=== PATIENT | female | born 1995 | race Hispanic/Latino ===

== ENCOUNTER 2025-01-22 19:06 | Inpatient (IN) | payer SELFPAY ==
[~2025-01-22] VITALS: Ht 157.5 cm; Wt 53.9 kg
[2025-01-22 19:44] LABS: IMMATURE GRANULOCYTE ABSOLUTE 0.01 K/uL (0-1); NUCLEATED RED BLOOD CELLS 0.0 % (0.0-0.19); PLATELET COUNT (AUTO) 241 K/uL (130-400); RED BLOOD CELL COUNT(AUTO) 4.70 MIL/uL (4.00-5.50); RED CELL DISTRIBUTION WIDTH 12.9 % (11.0-15.5); WHITE BLOOD COUNT (AUTO) 6.1 K/uL (4.8-10.8)
[2025-01-22 19:46] LABS: APPEARANCE,URINE CLEAR (CLEAR); GLUCOSE, URINE (UA) NEGATIVE (NEGATIVE); LEUKOCYTE ESTERASE ,URINE NEGATIVE Leu/uL (NEGATIVE); NITRATE,URINE NEGATIVE (NEGATIVE); OCCULT BLOOD,URINE NEGATIVE (NEGATIVE)
[2025-01-22 19:47] LABS: ADD UA MICROSCOPIC YES
[2025-01-22 19:48] LABS: SQUAMOUS EPITHELIAL CELL,UR FEW /HPF (0-2)
[2025-01-22 19:49] LABS: HCG,QUALITATIVE URINE NEGATIVE (NEGATIVE)
[2025-01-22 19:57] LABS: CREATININE 0.6 mg/dL (0.5-1.0); GLOMERULAR FILTR. RATE CALC 125.0 mL/min (>90); GLUCOSE,RANDOM 111.0 mg/dL (70-105); SODIUM SERUM 138.0 mmol/L (136-145); UREA NITROGEN, BLOOD 19.0 mg/dL (7-18)
[2025-01-22 20:02] LABS: ASPARTATE AMINOTRANSFERASE 119.0 U/L (10-37); TOTAL PROTEIN, SERUM 7.2 g/dL (6.0-8.3)
--- NOTE | 2025-01-22 20:11 | ERN ---
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 Patient reports pain lasted about 45 minutes and was associated with nausea. Patient reports pain has subsided and thinks it is because she ate a burger prior to arrival. Patient denies any fevers, diarrhea or constipation, vomiting. Allergies: Coded Allergies: No Known Allergies (Unverified Allergy, Unknown, 01/22/25) Past Medical History Past Medical History: No Pertinent History Surgical History: None LMP: Dec 29, 2024 RN Note Reviewed/Agreed w/PFSH: Yes Review of System Dictation Constitutional: Negative for fever,chills, and weight loss Eyes: Negative for injury, pain,redness, and discharge ENT: Negative for injury,pain or swelling Cardiovascular: Negative for chest pain, palpitations, and edema Respiratory: Negative for shortness of breath, cough, and wheezing, Abdomen/GI: Negative for vomiting, diarrhea, and constipation positive for abdominal pain, nausea Back: Negative for injury and pain : Negative for injury, bleeding and discharge MS/Extremity: Negative for injury and deformity Skin: Negative for rash, and discoloration Neuro: Negative for headache, weakness, numbness, tingling, and seizure Psych: Negative for suicide ideation, homicidal ideation, and hallucinations Initial Vital Sign VS Vital Signs Date Time Temp Pulse Resp B/P (MAP) Pulse Ox O2 Delivery O2 Flow Rate FiO2 01/22/25 19:11 98.2 91 20 132/91 100 Room Air 01/22/25 19:19 0 21 Physical Exam Dictation Vital Signs reviewed General Appearance: Alert, oriented x 3, no acute distress, well developed, nourished. Head and Face: non-traumatic. Eyes: PERRL, pink conjunctivas, eyelid no trauma, anterior chamber with arcus senilis. Ears: Pinnas intact and no signs of trauma or erythema ear canals clear and no discharge TM no erythema Nose: No discharge, no bleeding. Oropharynx: Mouth normal, tongue pink. pharynx clear,no erythema, tonsils no exudates, no abscesses noted, mucous membrane moist Neck: Supple, non-tender, no thyromegaly, no masses, no JVD, no bruits Breast:Deferred Chest:No tenderness, no crepitus, no paradoxical movement, no retractions Lungs:Clear, well-ventilated, symmetric, no rales, no wheezing, no rhonchi, no stridor, good breath sounds bilaterally Heart: Regular rate, regular rhythm, no murmur, no gallops Vascular: no peripheral edema, Abdomen: Soft, positive bowel sounds, nondistended, no guarding, Right upper quadrant tenderness,, no rebound, no masses no hepatomegaly, no splenomegaly, no Honeycutt's sign, no hernias. Rectal: Deferred Genital: Deferred Neurological: Normal speech, motor function intact, sensory function intact Musculoskeletal: Neck nontender, full range of motion, back nontender, full range of motion, Extremities: nontender, full range of motion Skin: Color pink, dry, no turgor, no rash, no lacerations, no abrasions, no contusions. Lymphatic: Deferred Results (Laboratory/Radiology) Laboratory/Radiology Laboratory Tests Test 01/22/25 19:16 01/22/25 19:40 Urine Color LIGHT-YELLOW (YELLOW) Urine Appearance CLEAR (CLEAR) Urine pH 5.5 (5.0-8.0) Urine Specific [place] 1.022 (1.001-1.031) Urine Protein NEGATIVE mg/dL (NEGATIVE) Urine Glucose (UA) NEGATIVE mg/dL (NEGATIVE) Urine Ketones NEGATIVE mg/dL (NEGATIVE) Urine Occult Blood NEGATIVE (NEGATIVE) Urine Nitrate NEGATIVE (NEGATIVE) Urine Bilirubin NEGATIVE mg/dL (NEGATIVE) Urine Urobilinogen 0.2 mg/dL (0.2-1.0) Urine Leukocyte Esterase NEGATIVE [place]/uL Urine RBC 0-1 /HPF (0-1) Urine WBC 2-5 /HPF (0-1) H Urine Squamous Epithelial Cells FEW /HPF (0-2) Urine Bacteria None /HPF (None Seen) Urine HCG, Qualitative NEGATIVE (NEGATIVE) White Blood Count 6.1 K/uL (4.8-10.8) Red Blood Count 4.70 MIL/uL (4.00-5.50) Hemoglobin 13.4 g/dL (12.0-16.0) Hematocrit 39.9 % (36-48) Mean Corpuscular Volume 84.9 fL (79-99) Mean Corpuscular Hemoglobin 28.5 pg (27.0-33.0) Mean Corpuscular Hemoglobin Concent 33.6 g/dL (32.0-36.0) Red Cell Distribution Width 12.9 % (11.0-15.5) Platelet Count 241 K/uL (130-400) Mean Platelet Volume 11.1 fL (7.5-10.5) H Immature Granulocyte % (Auto) 0.2 % (0-1) Neutrophils (%) (Auto) 48.2 % (40.0-77.0) Lymphocytes (%) (Auto) 45.3 % (21.0-51.0) Monocytes (%) (Auto) 4.9 % (3.0-13.0) Eosinophils (%) (Auto) 1.1 % (0.0-8.0) Basophils (%) (Auto) 0.3 % (0.0-5.0) Neutrophils # (Auto) 3.0 K/uL (1.8-7.7) Lymphocytes # (Auto) 2.8 K/uL (1.0-4.8) Monocytes # (Auto) 0.3 K/uL (0.1-1.0) Eosinophils # (Auto) 0.07 K/uL (0.00-0.70) Basophils # (Auto) 0.02 K/uL (0.00-0.20) Absolute Immature Granulocyte (auto 0.01 K/uL (0-1) Nucleated Red Blood Cells 0.0 % (0.0-0.19) Sodium Level 138 mmol/L (136-145) Potassium Level 3.4 mmol/L (3.5-5.1) L Chloride Level 104 mmol/L (101-111) Carbon Dioxide Level 26 mmol/L (21-32) Blood Urea Nitrogen 19 mg/dL (7-18) H Creatinine 0.6 mg/dL (0.5-1.0) Glomerular Filtration Rate Calc 125 mL/min (>90) Random Glucose 111 mg/dL (70-105) H Total Calcium 8.3 mg/dL (8.5-10.1) L Total Bilirubin 0.5 mg/dL (0.2-1.0) Direct Bilirubin 0.1 mg/dL (0.0-0.3) Aspartate Amino Transf (AST/SGOT) 119 U/L (10-37) H Alanine Aminotransferase (ALT/SGPT) 73 U/L (12-78) Alkaline Phosphatase 79 U/L (50-136) Total Protein 7.2 g/dL (6.0-8.3) Albumin 3.8 g/dL (3.5-5.0) Triglycerides Level 114 mg/dL (30-200) Lipase 1422 U/L (16-77) *H REASON: Adominal Pain ORDERING PHYSICIAN: ROSANA WHITE PROCEDURE: [id number] - US ABDOMINAL RUQ\LTD EXAMINATION: Ultrasound of the abdomen (limited). CLINICAL HISTORY: Abdominal pain. COMPARISON: None provided. TECHNIQUE: Real-time grayscale ultrasound images of the abdomen. FINDINGS: LIVER: Normal in caliber; the right hepatic lobe measures 14 cm in the craniocaudal dimension. There is increased echogenicity of the hepatic parenchyma. There is no focal hepatic abnormality or intrahepatic biliary ductal dilatation. GALLBLADDER: The gallbladder is distended with multiple calculi casting posterior acoustic shadow, the largest measuring up to 1.7 cm. Normal wall thickness (2 mm). No hyperemia or pericholecystic free fluid. The common bile duct is normal in caliber, measuring 0.5 cm. PANCREAS: Normal in caliber and echotexture. No calcification or dilated pancreatic duct. The right kidney is normal in caliber; the right kidney measures 10.3 x 4.7 x 3.9 cm in its craniocaudal, AP, and transverse dimensions. There is normal renal cortical thickness and cortical echogenicity. There is no renal calculus or hydronephrosis. IMPRESSION: Cholelithiasis without evidence of acute cholecystitis. Hepatic steatosis. /[facility] Labs Reviewed?: Yes ED Course ED Course Orders Procedure Category Date Status Time Cbc With Differential LAB 01/22/25 Complete 19:23 ,Urine Test LAB 01/22/25 Complete 19:23 Urinalysis Profile LAB 01/22/25 Complete 19:23 Us Abdominal Ruq\Ltd US 01/22/25 Resulted 19:23 Lipase LAB 01/22/25 Complete 19:23 Basic Metabolic Panel LAB 7/31/25 Complete 19:23 Hepatic Function Panel LAB 01/22/25 Complete 19:23 Triglycerides LAB 01/22/25 Complete 20:43 0.9%Nacl 1000ml (Ns PHA 01/22/25 Complete 1000ml) 21:00 Morphine 4mg Syg PHA 01/22/25 Complete (Morphine 4mg Syg) 21:00 Ondansetron 4mg Inj PHA 01/22/25 Complete (Zofran 4mg Inj) 21:00 Keep Patient Npo CPOE 01/22/25 Transmitted 22:01 Admit Orders ADM 01/22/25 Transmitted 22:01 Basic Metabolic Panel LAB 01/23/25 Verified 04:00 Cbc With Differential LAB 01/23/25 Verified 04:00 Magnesium LAB 01/23/25 Verified 04:00 Phosphorus LAB 01/23/25 Verified 04:00 Activity: Ad Maggie CPOE 01/22/25 Transmitted 22:01 Apply Knee High Teds CPOE 01/22/25 Transmitted 22:01 Apply Scds CPOE 01/22/25 Transmitted 22:01 Condition: CPOE 01/22/25 Transmitted 22:01 Daily Weights CPOE 01/22/25 Transmitted 22:01 I&O Q Shift CPOE 01/22/25 Transmitted 22:01 Nurse To Enter Home CPOE 01/22/25 Transmitted Medication 22:01 Oxygen By Nc/Pulse Ox CPOE 01/22/25 Transmitted 22:01 Telemetry Monitoring CPOE 01/22/25 Transmitted 22:01 Vital Signs(Adult CPOE 01/22/25 Transmitted Hospitalist) 22:01 Acetaminophen 650mg PHA 01/22/25 In Process Supp (Tylenol 650mg 22:30 Ondansetron 4mg Inj PHA 01/22/25 In Process (Zofran 4mg Inj) 22:30 Morphine 4mg Syg PHA 01/22/25 In Process (Morphine 4mg Syg) 22:30 Hydralazine 20mg Inj PHA 01/22/25 In Process (Apresoline 20mg In 22:30 Enoxaparin Sodium 40 PHA 01/23/25 In Process Mg/0.4 Ml (Lovenox) 09:00 Famotidine 20mg Vial PHA 01/23/25 In Process (Pepcid 20mg Vial) 09:00 Lactated Ringers PHA 01/22/25 In Process 1000ml (Lactated 22:30 Current Medications Medications (Trade) Dose Ordered Sig/[place] Route PRN Reason Start Time Stop Time Status Last Admin Dose Admin Acetaminophen (TYLenol 650MG SUPPOSITORY) 650 mg Q6H PRN RC MILD PAIN (1-3) 01/22/25 22:30 02/21/25 22:29 Enoxaparin Sodium (Lovenox) 40 mg DAILY SQ 01/23/25 09:00 02/22/25 08:59 Famotidine (Pepcid 20mg Vial) 20 mg DAILY IV 01/23/25 09:00 02/22/25 08:59 Hydralazine HCl (APRESOLine 20MG INJ) 10 mg Q6H PRN IV For:SBP above 160;DBP above 90 01/22/25 22:30 02/21/25 22:29 Lactated Ringer's 1,000 ml @ 125 mls/hr Q8H IV 01/22/25 22:30 02/21/25 22:29 Morphine Sulfate (morPHINE 4MG SYG) 4 mg ONCE ONCE IVP 01/22/25 21:00 01/22/25 21:01 DC Morphine Sulfate (morPHINE 4MG SYG) 4 mg Q4H PRN IVP SEVERE PAIN (7-10) 01/22/25 22:30 01/29/25 22:29 Ondansetron HCl (zoFRAN 4MG INJ) 4 mg ONCE ONCE IVP 01/22/25 21:00 01/22/25 21:01 DC Ondansetron HCl (zoFRAN 4MG INJ) 4 mg Q6H PRN IV NAUSEA/VOMITING 01/22/25 22:30 02/21/25 22:29 Sodium Chloride 1,000 ml @ 0 mls/hr ONCE ONCE IV 01/22/25 21:00 01/22/25 21:01 DC 01/22/25 20:52 Vital Signs Date Time Temp Pulse Resp B/P (MAP) Pulse Ox O2 Delivery O2 Flow Rate FiO2 01/22/25 21:15 98.2 78 20 128/87 100 Room Air* 0 21 01/22/25 19:19 98.2 81 20 132/91 100 Room Air* 0 21 01/22/25 19:11 98.2 91 20 132/91 100 Room Air Medical Decision Making MDM MDM: The patient is a 29-year-old female with a history of cholelithiasis who presents to the emergency department with complaints of right upper abdominal pain onset prior to arrival. Patient reports pain lasted about 45 minutes and was associated with nausea. Patient reports pain has subsided and thinks it is because she ate a burger prior to arrival. Patient denies any fevers, diarrhea or constipation, vomiting. CBC showed no leukocytosis, no anemia, chemistry showed mild hypokalemia, lipase of a 1422, urinalysis unremarkable, abdominal ultrasound showed cholelithiasis without cholecystitis. Patient will be admitted for further evaluation treatment. Differential diagnosis: Cholelithiasis, cholecystitis, pancreatitis Comorbidities: Cholelithiasis Tests considered and not ordered secondary to shared decision making include: none Previous outside records reviewed: none Risk of complication and/or morbidity or mortality of patient management: The patient meets criteria for admission. Need for emergency major/minor surgery: No There are no social concerns with this patient. I independently interpreted the tests I ordered (labs, urinalysis, etc.). I discussed the case with the hospitalist for admission. Rito who accepts admission I discussed the case with the following specialists: none. Historian: pateint. I independently interpreted imaging studies and EKGs that I ordered (US, CT, XR, EKG, etc.). External chart review: none. Medical management and examination interpretation discussions were had by me with other qualified healthcare professionals as indicated for the patient's care. DX & DISP Disposition: Inpatient Decision to Admit Date: Jan 22, 2025 Decision to Admit Time: 22:16 Departure Impression: Primary Impression: Pancreatitis Additional Impressions: Cholelithiasis, Hypokalemia Condition: Stable Referrals: NONE (PCP) I have reviewed the case, and I agree with, Diagnosis and Plan ROSANA WHITE Jan 22, 2025 20:11
[2025-01-22] MEDS: 0.9%NACL 1000ML 1,000 ML IV ONE (20:52)
--- NOTE | 2025-01-22 21:09 | HMCIMG ---
EXAMINATION: Ultrasound of the abdomen (limited). CLINICAL HISTORY: Abdominal pain. COMPARISON: None provided. TECHNIQUE: Real-time grayscale ultrasound images of the abdomen. FINDINGS: LIVER: Normal in caliber; the right hepatic lobe measures 14 cm in the craniocaudal dimension. There is increased echogenicity of the hepatic parenchyma. There is no focal hepatic abnormality or intrahepatic biliary ductal dilatation. GALLBLADDER: The gallbladder is distended with multiple calculi casting posterior acoustic shadow, the largest measuring up to 1.7 cm. Normal wall thickness (2 mm). No hyperemia or pericholecystic free fluid. The common bile duct is normal in caliber, measuring 0.5 cm. PANCREAS: Normal in caliber and echotexture. No calcification or dilated pancreatic duct. The right kidney is normal in caliber; the right kidney measures 10.3 x 4.7 x 3.9 cm in its craniocaudal, AP, and transverse dimensions. There is normal renal cortical thickness and cortical echogenicity. There is no renal calculus or hydronephrosis. IMPRESSION: Cholelithiasis without evidence of acute cholecystitis. Hepatic steatosis. /[place]
--- NOTE | 2025-01-22 22:04 | HP ---
History of Present Illness Reason for Visit: abdominal pain History of Present Illness Ms. Mota is a 29-year-old female that was seen and examined today on 01/22/2025. Patient is a good historian of personal health Patient states he came to the emergency department with a chief complaint of abdominal pain. Onset was today at 6:30 p.m.. Location is epigastric. Duration is constant. Character is described as pressure. There was no alleviating factors. Symptoms are aggravated with eating a hamburger and [place] fries. Patient denies any associated nausea or vomiting. Patient states she was diagnosed with gallstones one year ago. Today in the emergency department CBC unremarkable, potassium 3.4, lipase 1422. Emergency room physician recommended patient be admitted with a diagnosis of pancreatitis. Past Medical History ADDITIONAL PAST MEDICAL HISTORY: [Denies] SOCIAL HISTORY: [Negative for smoking, alcohol use, drug use. Patient lives with the radha Carias. Patient is typically independent of her ADLs. Patient denies difficulty paying her bills.] SURGICAL HISTORY: [Denies] Review of Systems General: No Fever, No Chills, No Night Sweats, No Fatigue, No Malaise, No Appetite, No Other HEENT: No Head Aches, No Visual Changes, No Eye Pain, No Ear Pain, No Dysphasia, No Sinus Congestion, No Post Nasal Drip, No Sore Throat, No Other Pulmonary: No Dyspnea, No Cough, No Pleuritic Chest Pain, No Other Cardiovascular: No: Chest Pain, Palpitations, Orthopnea, Paroxysmal Noc. Dyspnea, Edema, Lt Headedness, Other Gastrointestinal: Abdominal Pain; No: Nausea, Vomiting, Diarrhea, Constipation, Melena, Hematochezia, Other Genitourinary: No Dysuria, No Frequency, No Incontinence, No Hematuria, No Retention, No Other Musculoskeletal: No: other, neck pain, shoulder pain, arm pain, back pain, hand pain, leg pain, foot pain Skin: No Urticaria, No Rash, No Other Neurological: No: Weakness, Numbness, Incoordination, Change in speech, Confusion, Seizures, Other Allergies: Coded Allergies: No Known Allergies (Unverified Allergy, Unknown, 01/22/25) Exam Vital Signs Vital Signs Date Time Temp Pulse Resp B/P (MAP) Pulse Ox O2 Delivery O2 Flow Rate FiO2 7/31/25 21:15 98.2 78 20 128/87 100 Room Air* 0 21 General Appearance: Alert, Oriented X3, Cooperative, mild distress HEENT: Atraumatic, PERRLA, EOMI, Mucous membr. moist/pink Respiratory: Clear to auscultation, Normal air movement, NL respiratory effort Cardiovascular: Regular rate, Regular rhythm, Normal S1, Normal S2 Abdominal: Normal bowel sounds, Soft, No tenderness Extremities: No edema Skin: No significant lesion Neuro: Normal speech, Strength at 5/5 X4 ext, Sensation intact, Cranial nerves 3-12 NL Psych/Mental Status: Mental status NL, Mood NL, Thoughts/Content NL Assessment/Plan ASSESSMENT: [ Pancreatitis, POA Hypokalemia, POA Cholelithiasis, POA] PLAN: [ Admit patient to medical floor as inpatient status. Place patient on telemetry monitoring. As needed analgesia with morphine. Lactated Ringer's at 125 mL/HR. Keep patient NPO. Consider rechecking lipase in 48 hours. Replace potassium per hospital protocol. Have patient follow up outpatient with surgeon of choice in reference to her cholelithiasis. At time of admission there was no cholecystitis evident on abdominal ultrasound. GI prophylaxis, famotidine DVT prophylaxis, Lovenox ADVANCED CARE PLANNING 1. Which of the following were discussed? Hospice Care - Yes Therapeutic options - yes Advance Directives - Yes - patient states she does not have any advance directives in place at this time. Patient states there has been can make decisi ons for her if she becomes unable Other discussions - patient wishes to remain a full code 2. Discussed with who? Patient 3. Voluntary nature of this service was explained to the patient? Yes 4. Amount of time spent - ___16 minutes____ 5. Reviewed by Physician? (if this service was performed by NPP) Yes This document was generated in part using voice recognition software, occasional wrong word or sound alike substitutions may have occurred due to the inherent limitations of voice recognition software. Read the chart carefully and recognize using context, where the substitutions have occurred. Although every effort was made to edit the content, legal compliance officer and typing errors may occur ATTESTATION BY PHYSICIAN I have seen and examined the patient. I reviewed the documentation, medical decision making, and treatment plan as noted by the mid-level provider above. I agree with the findings and plan of care.] KIRSTIN [facility] Jan 22, 2025 22:04
[2025-01-22] MEDS: LACTATED RINGERS 1000ML 1,000 ML IV SCH (22:57)
[2025-01-23 00:19] VITALS: BP 148/67; PULSE 62; RESP 18; TEMP 98.9
[2025-01-23 05:16] VITALS: BP 93/45; PULSE 57; RESP 17; TEMP 98.2
[2025-01-23 05:53] LABS: IMMATURE GRANULOCYTE ABSOLUTE 0.01 K/uL (0-1); NUCLEATED RED BLOOD CELLS 0.0 % (0.0-0.19); PLATELET COUNT (AUTO) 216 K/uL (130-400); RED BLOOD CELL COUNT(AUTO) 4.35 MIL/uL (4.00-5.50); RED CELL DISTRIBUTION WIDTH 12.9 % (11.0-15.5); WHITE BLOOD COUNT (AUTO) 6.9 K/uL (4.8-10.8)
[2025-01-23 06:01] LABS: CREATININE 0.5 mg/dL (0.5-1.0); GLOMERULAR FILTR. RATE CALC 130.0 mL/min (>90); GLUCOSE,RANDOM 86.0 mg/dL (70-105); PHOSPHORUS 3.3 mg/dL (2.5-4.9); SODIUM SERUM 141.0 mmol/L (136-145); UREA NITROGEN, BLOOD 10.0 mg/dL (7-18)
[2025-01-23 08:00] VITALS: O2SAT 100
[2025-01-23] MEDS: ENOXAPARIN SODIUM 40 MG/0.4 ML SYRINGE SQ SCH (08:33)
[2025-01-23] MEDS: FAMOTIDINE 20MG VIAL IV SCH (08:33)
--- NOTE | 2025-01-23 10:32 | NUR ---
DCP: HOME Pt currently lives with bety Mota [phone]. Pt does not report insecurities with food, senior living, and/or utilities. Pt does not have any DME, home health, or provider services. Pt is able to complete ADLs independently. Pt does not have a PCP and did not want community resources. She states that when she feels ill she walks into her nearest urgent care. At [place] pt will want to go home and family can assist with transportation. Addendum: 01/23/25 at 1034 by ROSIE BRICENO SS Amended: Links added.
[2025-01-23 12:54] VITALS: BP 109/58; PULSE 63; RESP 16; TEMP 97.8
[2025-01-23] MEDS: MAGNESIUM 2GM PREMIX 50ML 50 ML IV PRN (14:34)
--- NOTE | 2025-01-23 16:10 | NUR ---
Patient transported off unit via wheelchair for scheduled procedure: SAMUELP
[2025-01-23] MEDS ORDERED: GADOTERATE MEGLUMINE 10 MMOL/20 ML VIAL IV ONE (16:28)
--- NOTE | 2025-01-23 17:29 | PN ---
[facility] PROGRESS NOTE Date of Service: Jan 23, 2025 Time of Service: 17:09 SUBJECTIVE: Ms. Oneill is a 29-year-old female that that came to the emergency department with a chief complaint of abdominal pain. Onset of pain was last night after she had a half a hamburger. The location is epigastric and the duration is constant she describes the pain more as pressure kind of pain. There were no alleviating factors. Patient says she had these episodes previously the last of which was around April which is when she decided to go to the doctor and she got diagnosed with gallstones. She did not undergo any procedure or treatment and was advised to change her diet and exercise. Patient denies any associated vomiting but said she had nausea. In the ED her lipase was in the range of 1422 and potassium at 3.4. 01/23/25: Patient is doing much better today she has no epigastric pain or nausea. Her abdomen was benign and there was no tenderness on palpitation. Her lipase is at 163 today. Her potassium has also improved to 3.7 after receiving IV potassium Her magnesium today is low at 1.70 so she is has been getting IV magnesium. Patient is scheduled for MRCP. Surgery and GI have been consulted. We will follow their recommendations. REVIEW OF SYSTEMS CONSTITUTIONAL: Denies fevers, chills, or night sweats. No unintentional weight loss reported. NEUROLOGICAL: Denies headache, motor weakness, sensory deficit, verti go/spinning sensation. ENT: No hearing loss, rhinorrhea, hoarseness, or sore throat. CARDIOVASCULAR: Denies any exertional angina, dyspnea on exertion, orthopnea, paroxysmal nocturnal dyspnea. PULMONARY: Denies any shortness of breath, cough, phlegm/sputum, hemoptysis, pleuritic chest pain. GASTROINTESTINAL: constipation Denies any type of dysphagia to either liquids or solids. Denies nausea, vomiting, diarrhea, or changes in stool consistency or caliber. Denies coffee-ground emesis, hematemesis, hematochezia, or melanotic stools. ENDOCRINOLOGIC: Denies polyuria, polydipsia, polyphagia or heat/cold intolerances. DERMATOLOGIC: Denies rashes or pruritus. PHYSICAL EXAM GENERAL APPEARANCE: The patient is awake, alert, and oriented, in no acute cardiopulmonary distress. NEUROLOGICAL: Cranial nerves II-XII grossly intact. Motor is 5/5 in bilateral upper and lower extremities proximal to distal. No sensory deficits. HEENT: Face is symmetric. Pupils are equal and reactive. Extraocular movements are intact. NECK: Supple. No JVD. No thyromegaly. No submental, submandibular, pre- /postauricular, occipital or supraclavicular lymphadenopathy. CHEST: Normal chest expansion. No Telemetry. LUNGS: Absence of any rales, rhonchi or any wheezing. CARDIOVASCULAR: Regular. S1 and S2 normal. No appreciable rubs, murmurs or gallops. ABDOMEN: Soft, nontender, and nondistended. There is no rebound, voluntary guarding, or rigidity. : Deferred. No Linda. EXTREMITIES: Non-edematous and not cyanotic. No clubbing. Good capillary refill. SKIN: No skin breakdown. Vital Signs (last 8hr) Date Time Temp Pulse Resp B/P (MAP) Pulse Ox O2 Delivery O2 Flow Rate FiO2 01/23/25 12:54 97.9 63 16 109/58 100 Room Air 0.0 LABS: Laboratory: Test 01/23/25 05:12 01/22/25 19:40 01/22/25 19:16 Range/Units White Blood Count 6.9 4.8-10.8 K/uL Red Blood Count 4.35 4.00-5.50 MIL/uL Hemoglobin 12.2 12.0-16.0 g/dL Hematocrit 37.1 36-48 % Mean Corpuscular Volume 85.3 79-99 fL Mean Corpuscular Hemoglobin 28.0 27.0-33.0 pg Mean Corpuscular Hemoglobin Concent 32.9 32.0-36.0 g/dL Red Cell Distribution Width 12.9 11.0-15.5 % Platelet Count 216 130-400 K/uL Mean Platelet Volume 11.3 H 7.5-10.5 fL Immature Granulocyte % (Auto) 0.1 0-1 % Neutrophils (%) (Auto) 36.7 L 40.0-77.0 % Lymphocytes (%) (Auto) 54.0 H 21.0-51.0 % Monocytes (%) (Auto) 7.3 3.0-13.0 % Eosinophils (%) (Auto) 1.5 0.0-8.0 % Basophils (%) (Auto) 0.4 0.0-5.0 % Neutrophils # (Auto) 2.5 1.8-7.7 K/uL Lymphocytes # (Auto) 3.7 1.0-4.8 K/uL Monocytes # (Auto) 0.5 0.1-1.0 K/uL Eosinophils # (Auto) 0.10 0.00-0.70 K/uL Basophils # (Auto) 0.03 0.00-0.20 K/uL Absolute Immature Granulocyte (auto 0.01 0-1 K/uL Nucleated Red Blood Cells 0.0 0.0-0.19 % Sodium Level 141 136-145 mmol/L Potassium Level 3.7 3.5-5.1 mmol/L Chloride Level 109 101-111 mmol/L Carbon Dioxide Level 24 21-32 mmol/L Blood Urea Nitrogen 10 7-18 mg/dL Creatinine 0.5 0.5-1.0 mg/dL Glomerular Filtration Rate Calc 130 >90 mL/min Random Glucose 86 70-105 mg/dL Total Calcium 8.0 L 8.5-10.1 mg/dL Phosphorus Level 3.3 2.5-4.9 mg/dL Magnesium Level 1.70 L 1.80-2.40 mg/dL Lipase 163 H 16-77 U/L Total Bilirubin 0.5 0.2-1.0 mg/dL Direct Bilirubin 0.1 0.0-0.3 mg/dL Aspartate Amino Transf (AST/SGOT) 119 H 10-37 U/L Alanine Aminotransferase (ALT/SGPT) 73 12-78 U/L Alkaline Phosphatase 79 50-136 U/L Total Protein 7.2 6.0-8.3 g/dL Albumin 3.8 3.5-5.0 g/dL Triglycerides Level 114 30-200 mg/dL Urine Color LIGHT-YELLOW YELLOW Urine Appearance CLEAR CLEAR Urine pH 5.5 5.0-8.0 Urine Specific [place] 1.022 1.001-1.031 Urine Protein NEGATIVE NEGATIVE mg/dL Urine Glucose (UA) NEGATIVE NEGATIVE mg/dL Urine Ketones NEGATIVE NEGATIVE mg/dL Urine Occult Blood NEGATIVE NEGATIVE Urine Nitrate NEGATIVE NEGATIVE Urine Bilirubin NEGATIVE NEGATIVE mg/dL Urine Urobilinogen 0.2 0.2-1.0 mg/dL Urine Leukocyte Esterase NEGATIVE NEGATIVE [place]/uL Urine RBC 0-1 0-1 /HPF Urine WBC 2-5 H 0-1 /HPF Urine Squamous Epithelial Cells FEW 0-2 /HPF Urine Bacteria None None Seen /HPF Urine HCG, Qualitative NEGATIVE NEGATIVE Current Medications Medications (Trade) Dose Ordered Sig/[place] Route PRN Reason Start Time Stop Time Status Last Admin Dose Admin Acetaminophen (TYLenol 650MG SUPPOSITORY) 650 mg Q6H PRN RC MILD PAIN (1-3) 01/22/25 22:30 02/21/25 22:29 Enoxaparin Sodium (Lovenox) 40 mg DAILY SQ 01/23/25 09:00 02/22/25 08:59 01/23/25 08:33 40 MG Famotidine (Pepcid 20mg Vial) 20 mg DAILY IV 01/23/25 09:00 02/22/25 08:59 01/23/25 08:33 20 MG Hydralazine HCl (APRESOLine 20MG INJ) 10 mg Q6H PRN IV For:SBP above 160;DBP above 90 01/22/25 22:30 02/21/25 22:29 Lactated Ringer's 1,000 ml @ 125 mls/hr Q8H IV 01/22/25 22:30 02/21/25 22:29 01/23/25 08:45 125 MLS/HR Magnesium Sulfate 50 ml @ 0 mls/hr PROTOCOL PRN IV As needed 01/23/25 09:00 02/22/25 08:59 01/23/25 14:34 15 MLS/HR Morphine Sulfate (morPHINE 4MG SYG) 4 mg Q4H PRN IVP SEVERE PAIN (7-10) 01/22/25 22:30 01/29/25 22:29 Ondansetron HCl (zoFRAN 4MG INJ) 4 mg Q6H PRN IV NAUSEA/VOMITING 01/22/25 22:30 02/21/25 22:29 Potassium Chloride 100 ml @ 50 mls/hr AD PRN IV POTASSIUM PROTOCOL 01/22/25 22:30 02/21/25 22:29 01/23/25 08:33 50 MLS/HR DIAGNOSTICS / RADIOLOGY: [address] [address] IMAGING REPORT Signed PATIENT: LAURI ONEILL MR#: [id number] : 1995 SEX: F AGE: 29 LOCATION: [facility] ORDER 23 STATUS: REG REPORT#: [id number] SERVICE 22 REASON: Adominal Pain ORDERING PHYSICIAN: ROSANA WHITE PROCEDURE: [id number] - US ABDOMINAL RUQ\LTD EXAMINATION: Ultrasound of the abdomen (limited). CLINICAL HISTORY: Abdominal pain. COMPARISON: None provided. TECHNIQUE: Real-time grayscale ultrasound images of the abdomen. FINDINGS: LIVER: Normal in caliber; the right hepatic lobe measures 14 cm in the craniocaudal dimension. There is increased echogenicity of the hepatic parenchyma. There is no focal hepatic abnormality or intrahepatic biliary ductal dilatation. GALLBLADDER: The gallbladder is distended with multiple calculi casting posterior acoustic shadow, the largest measuring up to 1.7 cm. Normal wall thickness (2 mm). No hyperemia or pericholecystic free fluid. The common bile duct is normal in caliber, measuring 0.5 cm. PANCREAS: Normal in caliber and echotexture. No calcification or dilated pancreatic duct. The right kidney is normal in caliber; the right kidney measures 10.3 x 4.7 x 3.9 cm in its craniocaudal, AP, and transverse dimensions. There is normal renal cortical thickness and cortical echogenicity. There is no renal calculus or hydronephrosis. IMPRESSION: Cholelithiasis without evidence of acute cholecystitis. Hepatic steatosis. /[place] DICTATED BY: ADRIEN MCGARRY Jr., MD DATE: 01/22/252207 ELECTRONICALLY SIGNED BY: ADRIEN MCGARRY Jr., MD DATE: 01/22/252207 ASSESSMENT: Acute pancreatitis due to gallstones Cholelithiasis without cholecystitis Hypokalemia PLAN: Acute pancreatitis due to gallstones * Presented with epigastric pain, improved today * Patient given lactated Ringer's solution * Patient's lipase at 163 from 1422 yesterday * Could be due to the gallstones, patient is a social drinker, triglycerides at 114 * GI consulted Cholelithiasis without cholecystitis * Patient previously diagnosed with cholelithiasis * Ultrasound shows cholelithiasis without cholecystitis * MRCP has been ordered waiting on results * GI and surgery consulted Hypokalemia * Patient's potassium level at admission was 3.4 * Patient given IV potassium * Patient's potassium level today at 3.7 * We will continue monitoring the potassium levels ATTESTATION BY PHYSICIAN I have seen and examined the patient. I reviewed the documentation, medical decision making, and treatment plan as noted by the resident provider above. I agree with the findings and plan of care. Milind Biggs MD, ABHINAV MD Jan 23, 2025 17:29
[2025-01-23 20:00] VITALS: BP 101/65; PULSE 72; RESP 19; TEMP 98
--- NOTE | 2025-01-23 23:03 | CONS ---
GENERAL SURGERY CONSULTATION NOTE Date/Time Patient Seen: [ ] Requesting Physician: [ ] Reason for Consultation: [ ] History of Present Illness: 29-year-old healthy female was admitted for gallstone pancreatitis. She has a one year history of intermittent upper abdominal pain. This time the pain started yesterday around 5:00 p.m. and worsened. She had associated chills. Past Medical History: None Past Surgical History: Nasal surgery as a child Family History: Noncontributory Social History: Habits: [Never] smoker. [Denies] alcohol consumption. [Denies] illicit drug use Current Medications Medications (Trade) Dose Ordered Sig/[place] Route Start Time Stop Time Status Last Admin Dose Admin Enoxaparin Sodium (Lovenox) 40 mg DAILY SQ 01/23/25 09:00 02/22/25 08:59 01/23/25 08:33 40 MG Famotidine (Pepcid 20mg Vial) 20 mg DAILY IV 01/23/25 09:00 02/22/25 08:59 01/23/25 08:33 20 MG Lactated Ringer's 1,000 ml @ 125 mls/hr Q8H IV 01/22/25 22:30 02/21/25 22:29 01/23/25 20:37 125 MLS/HR Review of Systems: CONST: [No fever, fatigue, or weight changes.] EYES: [No recent vision problems.] ENT: [No congestion, ear pain, or sore throat.] C/V: [No chest pain, palpitations, or edema.] RESP: [No cough, congestion, wheezing or shortness of breath.] GI: Positive for abdominal pain : [No incontinence or dysuria.] SKIN: [No rash.] NEURO: [No headache, focal numbness or weakness, dizziness, or seizures.] PSYCH: [No depression or anxiety.] HEME: [No abnormal bruising or bleeding.] LYMPH: [No swollen glands.] Physical Examination: GENERAL: [No acute distress.] HEAD: [Normal with no signs of head trauma.] EYES: [PERRLA, EOMI, conjunctiva and sclera normal.] ENT: [Hearing grossly intact, normal oropharynx.] NECK: [Supple without JVD. There is no tenderness, lymphadenopathy, or masses. No thyromegaly. Normal carotid upstrokes without bruits.] LUNGS: [Clear breath sounds bilaterally. There are right basilar rales one third of the way up the chest. No wheezes, or rhonchi.] HEART: [Normal rate and rhythm. Normal S1 and S2 without mumurs, gallop or rub.] VASC: [Peripheral pulses +2 bilaterally.] ABD: [Bowel sounds normal, soft, nontender, no masses, no organomegaly. No audible bruits.] : [Not examined] LYMPH: [No lymphadenopathy noted.] EXT: [No clubbing, cyanosis or edema.] SKIN: [No rashes or lesions noted.] NEURO: [Awake, alert, and oriented x3. No focal sensory or strength deficits noted.] Laboratory: [ ] Hematology Labs: Test 01/23/25 05:12 Range/Units White Blood Count 6.9 4.8-10.8 K/uL Red Blood Count 4.35 4.00-5.50 MIL/uL Hemoglobin 12.2 12.0-16.0 g/dL Hematocrit 37.1 36-48 % Mean Corpuscular Volume 85.3 79-99 fL Mean Corpuscular Hemoglobin 28.0 27.0-33.0 pg Mean Corpuscular Hemoglobin Concent 32.9 32.0-36.0 g/dL Red Cell Distribution Width 12.9 11.0-15.5 % Platelet Count 216 130-400 K/uL Mean Platelet Volume 11.3 H 7.5-10.5 fL Immature Granulocyte % (Auto) 0.1 0-1 % Neutrophils (%) (Auto) 36.7 L 40.0-77.0 % Lymphocytes (%) (Auto) 54.0 H 21.0-51.0 % Monocytes (%) (Auto) 7.3 3.0-13.0 % Eosinophils (%) (Auto) 1.5 0.0-8.0 % Basophils (%) (Auto) 0.4 0.0-5.0 % Neutrophils # (Auto) 2.5 1.8-7.7 K/uL Lymphocytes # (Auto) 3.7 1.0-4.8 K/uL Monocytes # (Auto) 0.5 0.1-1.0 K/uL Eosinophils # (Auto) 0.10 0.00-0.70 K/uL Basophils # (Auto) 0.03 0.00-0.20 K/uL Absolute Immature Granulocyte (auto 0.01 0-1 K/uL Nucleated Red Blood Cells 0.0 0.0-0.19 % Chemistry Labs: Test 01/23/25 05:12 01/22/25 19:40 Range/Units Sodium Level 141 136-145 mmol/L Potassium Level 3.7 3.5-5.1 mmol/L Chloride Level 109 101-111 mmol/L Carbon Dioxide Level 24 21-32 mmol/L Blood Urea Nitrogen 10 7-18 mg/dL Creatinine 0.5 0.5-1.0 mg/dL Glomerular Filtration Rate Calc 130 >90 mL/min Random Glucose 86 70-105 mg/dL Total Calcium 8.0 L 8.5-10.1 mg/dL Phosphorus Level 3.3 2.5-4.9 mg/dL Magnesium Level 1.70 L 1.80-2.40 mg/dL Lipase 163 H 16-77 U/L Total Bilirubin 0.5 0.2-1.0 mg/dL Direct Bilirubin 0.1 0.0-0.3 mg/dL Aspartate Amino Transf (AST/SGOT) 119 H 10-37 U/L Alanine Aminotransferase (ALT/SGPT) 73 12-78 U/L Alkaline Phosphatase 79 50-136 U/L Total Protein 7.2 6.0-8.3 g/dL Albumin 3.8 3.5-5.0 g/dL Triglycerides Level 114 30-200 mg/dL Diagnostics / Radiology: Abdominal ultrasound shows cholelithiasis without evidence of cholecystitis Assessment: 29-year-old female with gallstone pancreatitis--pancreas appears to be cooling down Plan: Okay to start clears We will plan for a cholecystectomy on Sunday Discussed the nature of the surgery which included the risks of bleeding, infection, bile leak, bile duct injury possible open procedure and injury to surrounding viscera. ARLETTE OBANDO MD Jan 23, 2025 23:03
[2025-01-24] VITALS (7 sets, daily range): BP systolic 90–117; BP diastolic 42–78; PULSE 53–72; RESP 16–19; TEMP 97.7–98.6; O2SAT 98
[2025-01-24 05:22] LABS: NUCLEATED RED BLOOD CELLS 0.0 % (0.0-0.19); PLATELET COUNT (AUTO) 207.0 K/uL (130-400); RED BLOOD CELL COUNT(AUTO) 4.31 MIL/uL (4.00-5.50); RED CELL DISTRIBUTION WIDTH 12.9 % (11.0-15.5); WHITE BLOOD COUNT (AUTO) 5.5 K/uL (4.8-10.8)
[2025-01-24 05:38] LABS: ASPARTATE AMINOTRANSFERASE 17.0 U/L (10-37); CREATININE 0.6 mg/dL (0.5-1.0); GLOMERULAR FILTR. RATE CALC 125.0 mL/min (>90); GLUCOSE,RANDOM 85.0 mg/dL (70-105); SODIUM SERUM 140.0 mmol/L (136-145); TOTAL PROTEIN, SERUM 5.9 g/dL (6.0-8.3); UREA NITROGEN, BLOOD 9.0 mg/dL (7-18)
--- NOTE | 2025-01-24 11:17 | PN ---
[facility] PROGRESS NOTE Date of Service: Jan 24, 2025 Time of Service: 11:01 SUBJECTIVE: Ms. Mota is a 29-year-old female that that came to the emergency department with a chief complaint of abdominal pain. Onset of pain was last night after she had a half a hamburger. The location is epigastric and the duration is constant she describes the pain more as pressure kind of pain. There were no alleviating factors. Patient says she had these episodes previously the last of which was around April which is when she decided to go to the doctor and she got diagnosed with gallstones. She did not undergo any procedure or treatment and was advised to change her diet and exercise. Patient denies any associated vomiting but said she had nausea. In the ED her lipase was in the range of 1422 and potassium at 3.4. 01/23/25: Patient is doing much better today she has no epigastric pain or nausea. Her abdomen was benign and there was no tenderness on palpitation. Her lipase is at 163 today. Her potassium has also improved to 3.7 after receiving IV potassium Her magnesium today is low at 1.70 so she is has been getting IV magnesium. Patient is scheduled for MRCP. Surgery and GI have been consulted. We will follow their recommendations. 01/24/25 Patient was seen and examined at bedside. Her lipase has come down to 26, she denies abdominal pain or nausea/ vomiting and there was no tenderness or guarding noted on palpation. As per Dr. Lane, plan is to do cholecystectomy tomorrow. Pending GI recommendations. Her electrolytes have been repleted. REVIEW OF SYSTEMS CONSTITUTIONAL: Denies fevers, chills, or night sweats. No unintentional weight loss reported. NEUROLOGICAL: Denies headache, motor weakness, sensory deficit, vertigo/spinning sensation. ENT: No hearing loss, rhinorrhea, hoarseness, or sore throat. CARDIOVASCULAR: Denies any exertional angina, dyspnea on exertion, orthopnea, paroxysmal nocturnal dyspnea. PULMONARY: Denies any shortness of breath, cough, phlegm/sputum, hemoptysis, pleuritic chest pain. GASTROINTESTINAL: constipation Denies any type of dysphagia to either liquids or solids. Denies nausea, vomiting, diarrhea, or changes in stool consistency or caliber. Denies coffee-ground emesis, hematemesis, hematochezia, or melanotic stools. ENDOCRINOLOGIC: Denies polyuria, polydipsia, polyphagia or heat/cold intolerances. DERMATOLOGIC: Denies rashes or pruritus. PHYSICAL EXAM GENERAL APPEARANCE: The patient is awake, alert, and oriented, in no acute cardiopulmonary distress. NEUROLOGICAL: Cranial nerves II-XII grossly intact. Motor is 5/5 in bilateral upper and lower extremities proximal to distal. No sensory deficits. HEENT: Face is symmetric. Pupils are equal and reactive. Extraocular movements are intact. NECK: Supple. No JVD. No thyromegaly. No submental, submandibular, pre- /postauricular, occipital or supraclavicular lymphadenopathy. CHEST: Normal chest expansion. No Telemetry. LUNGS: Absence of any rales, rhonchi or any wheezing. CARDIOVASCULAR: Regular. S1 and S2 normal. No appreciable rubs, murmurs or gallops. ABDOMEN: Soft, nontender, and nondistended. There is no rebound, voluntary guarding, or rigidity. : Deferred. No Linda. EXTREMITIES: Non-edematous and not cyanotic. No clubbing. Good capillary refill. SKIN: No skin breakdown. Vital Signs (last 8hr) Date Time Temp Pulse Resp B/P (MAP) Pulse Ox O2 Delivery O2 Flow Rate FiO2 01/24/25 08:00 98.1 58 18 90/48 99 Room Air 01/24/25 07:53 98 Room Air* 0 21 01/24/25 04:00 98.2 72 19 90/42 98 Room Air LABS: Laboratory: Test 01/24/25 05:16 01/23/25 05:12 01/22/25 19:40 01/22/25 19:16 Range/Units White Blood Count 5.5 4.8-10.8 K/uL Red Blood Count 4.31 4.00-5.50 MIL/uL Hemoglobin 12.3 12.0-16.0 g/dL Hematocrit 37.3 36-48 % Mean Corpuscular Volume 86.5 79-99 fL Mean Corpuscular Hemoglobin 28.5 27.0-33.0 pg Mean Corpuscular Hemoglobin Concent 33.0 32.0-36.0 g/dL Red Cell Distribution Width 12.9 11.0-15.5 % Platelet Count 207 130-400 K/uL Mean Platelet Volume 10.5 7.5-10.5 fL Nucleated Red Blood Cells 0.0 0.0-0.19 % Sodium Level 140 136-145 mmol/L Potassium Level 3.7 3.5-5.1 mmol/L Chloride Level 108 101-111 mmol/L Carbon Dioxide Level 27 21-32 mmol/L Blood Urea Nitrogen 9 7-18 mg/dL Creatinine 0.6 0.5-1.0 mg/dL Glomerular Filtration Rate Calc 125 >90 mL/min Random Glucose 85 70-105 mg/dL Total Calcium 8.0 L 8.5-10.1 mg/dL Magnesium Level 2.00 1.80-2.40 mg/dL Total Bilirubin 1.0 0.2-1.0 mg/dL Aspartate Amino Transf (AST/SGOT) 17 10-37 U/L Alanine Aminotransferase (ALT/SGPT) 39 12-78 U/L Alkaline Phosphatase 57 50-136 U/L Total Protein 5.9 L 6.0-8.3 g/dL Albumin 3.1 L 3.5-5.0 g/dL Lipase 26 16-77 U/L Immature Granulocyte % (Auto) 0.1 0-1 % Neutrophils (%) (Auto) 36.7 L 40.0-77.0 % Lymphocytes (%) (Auto) 54.0 H 21.0-51.0 % Monocytes (%) (Auto) 7.3 3.0-13.0 % Eosinophils (%) (Auto) 1.5 0.0-8.0 % Basophils (%) (Auto) 0.4 0.0-5.0 % Neutrophils # (Auto) 2.5 1.8-7.7 K/uL Lymphocytes # (Auto) 3.7 1.0-4.8 K/uL Monocytes # (Auto) 0.5 0.1-1.0 K/uL Eosinophils # (Auto) 0.10 0.00-0.70 K/uL Basophils # (Auto) 0.03 0.00-0.20 K/uL Absolute Immature Granulocyte (auto 0.01 0-1 K/uL Phosphorus Level 3.3 2.5-4.9 mg/dL Direct Bilirubin 0.1 0.0-0.3 mg/dL Triglycerides Level 114 30-200 mg/dL Urine Color LIGHT-YELLOW YELLOW Urine Appearance CLEAR CLEAR Urine pH 5.5 5.0-8.0 Urine Specific [place] 1.022 1.001-1.031 Urine Protein NEGATIVE NEGATIVE mg/dL Urine Glucose (UA) NEGATIVE NEGATIVE mg/dL Urine Ketones NEGATIVE NEGATIVE mg/dL Urine Occult Blood NEGATIVE NEGATIVE Urine Nitrate NEGATIVE NEGATIVE Urine Bilirubin NEGATIVE NEGATIVE mg/dL Urine Urobilinogen 0.2 0.2-1.0 mg/dL Urine Leukocyte Esterase NEGATIVE NEGATIVE [place]/uL Urine RBC 0-1 0-1 /HPF Urine WBC 2-5 H 0-1 /HPF Urine Squamous Epithelial Cells FEW 0-2 /HPF Urine Bacteria None None Seen /HPF Urine HCG, Qualitative NEGATIVE NEGATIVE Current Medications Medications (Trade) Dose Ordered Sig/[place] Route PRN Reason Start Time Stop Time Status Last Admin Dose Admin Acetaminophen (TYLenol 650MG SUPPOSITORY) 650 mg Q6H PRN RC MILD PAIN (1-3) 01/22/25 22:30 02/21/25 22:29 Enoxaparin Sodium (Lovenox) 40 mg DAILY SQ 01/23/25 09:00 02/22/25 08:59 01/24/25 10:33 40 MG Famotidine (Pepcid 20mg Vial) 20 mg DAILY IV 01/23/25 09:00 02/22/25 08:59 01/24/25 10:33 20 MG Hydralazine HCl (APRESOLine 20MG INJ) 10 mg Q6H PRN IV For:SBP above 160;DBP above 90 01/22/25 22:30 02/21/25 22:29 Lactated Ringer's 1,000 ml @ 125 mls/hr Q8H IV 01/22/25 22:30 02/21/25 22:29 01/24/25 05:59 125 MLS/HR Magnesium Sulfate 50 ml @ 0 mls/hr PROTOCOL PRN IV As needed 01/23/25 09:00 02/22/25 08:59 01/23/25 14:34 15 MLS/HR Morphine Sulfate (morPHINE 4MG SYG) 4 mg Q4H PRN IVP SEVERE PAIN (7-10) 01/22/25 22:30 01/29/25 22:29 Ondansetron HCl (zoFRAN 4MG INJ) 4 mg Q6H PRN IV NAUSEA/VOMITING 01/22/25 22:30 02/21/25 22:29 Potassium Chloride 100 ml @ 50 mls/hr AD PRN IV POTASSIUM PROTOCOL 01/22/25 22:30 02/21/25 22:29 01/23/25 08:33 50 MLS/HR DIAGNOSTICS / RADIOLOGY: [ ] ASSESSMENT: Acute pancreatitis due to gallstones Cholelithiasis without cholecystitis Hypokalemia PLAN: Acute pancreatitis due to gallstones * Presented with epigastric pain, improved today * Patient given lactated Ringer's solution * Patient's lipase at 26 from 163 yesterday * Could be due to the gallstones, patient is a social drinker, triglycerides at 114 * GI consulted Cholelithiasis without cholecystitis * Patient previously diagnosed with cholelithiasis * Ultrasound shows cholelithiasis without cholecystitis * MRCP has been ordered waiting on results * Lap Cholecystectomy planned for tomorrow by Dr. Lane Hypokalemia * Patient's potassium level at admission was 3.4 * Patient given IV potassium * Patient's potassium level today at 3.7 * We will continue monitoring the potassium levels ATTESTATION BY PHYSICIAN I have seen and examined the patient. I reviewed the documentation, medical decision making, and treatment plan as noted by the resident provider above. I agree with the findings and plan of care. Milind Biggs MD, NIHITHA MD Jan 24, 2025 11:17
--- NOTE | 2025-01-24 14:10 | HMCIMG ---
EXAMINATION: MRCP WITHOUT AND WITH CONTRAST. CLINICAL HISTORY: Cholelithiasis. TECHNIQUE: Multiplanar, multisequence MR imaging was performed before and after the contrast administration of intravenous contrast. COMPARISON: None. FINDINGS: The liver, spleen, bilateral adrenal glands, and kidneys appear grossly unremarkable. The visualized portions of the bowel are normal in appearance. There are no areas of increased signal intensity or abnormal post-contrast enhancement. The visualized portions of the thoracic and lumbar spine are normal. The pancreas is normal in bulk and signal intensities. No abnormally enhancing foci within. No peripancreatic fluid collections. The gallbladder appears within normal limits without gallbladder wall thickening or pericholecystic inflammatory findings. Gallbladder calculi measuring 17 mm, 14 mm and 6 mm, respectively. The common hepatic duct measures 0.4 cm. The common bile duct measures 0.34 cm is normal in caliber throughout its course without stricturing, or MR evidence for choledocholithiasis. The cystic is normal with upper CBD insertion. IMPRESSION: Cholelithiasis. No biliary duct dilatation. No evidence of choledocholithiasis. /[place]
--- NOTE | 2025-01-24 23:00 | PN ---
GENERAL SURGERY PROGRESS NOTE Date/Time Patient Seen: [ ] Problem List: Gallstone pancreatitis Interval History: Patient's abdominal pain has resolved Tolerating clears Lipase is normal Current Medications Medications (Trade) Dose Ordered Sig/Kolton Route Start Time Stop Time Status Last Admin Dose Admin Enoxaparin Sodium (Lovenox) 40 mg DAILY SQ 01/23/25 09:00 02/22/25 08:59 01/24/25 10:33 40 MG Famotidine (Pepcid 20mg Vial) 20 mg DAILY IV 01/23/25 09:00 02/22/25 08:59 01/24/25 10:33 20 MG Lactated Ringer's 1,000 ml @ 125 mls/hr Q8H IV 01/22/25 22:30 02/21/25 22:29 01/24/25 21:46 125 MLS/HR Physical Examination: GENERAL: [No acute distress.] HEAD: [Normal with no signs of head trauma.] EYES: [PERRLA, EOMI, conjunctiva and sclera normal.] ENT: [Hearing grossly intact, normal oropharynx.] NECK: [Supple without JVD. There is no tenderness, lymphadenopathy, or masses. No thyromegaly. Normal carotid upstrokes without bruits.] LUNGS: [Clear breath sounds bilaterally. There are right basilar rales one third of the way up the chest. No wheezes, or rhonchi.] HEART: [Normal rate and rhythm. Normal S1 and S2 without mumurs, gallop or rub.] VASC: [Peripheral pulses +2 bilaterally.] ABD: [Bowel sounds normal, soft, nontender, no masses, no organomegaly. No audible bruits.] : [Not examined] LYMPH: [No lymphadenopathy noted.] EXT: [No clubbing, cyanosis or edema.] SKIN: [No rashes or lesions noted.] NEURO: [Awake, alert, and oriented x3. No focal sensory or strength deficits noted.] Vital Signs (last 8hr) Date Time Temp Pulse Resp B/P (MAP) Pulse Ox O2 Delivery O2 Flow Rate FiO2 01/24/25 20:05 Room Air* 0 21 01/24/25 20:00 97.7 64 16 117/78 100 Room Air 21 01/24/25 16:00 98.6 56 17 110/72 100 Room Air Laboratory: [ ] Hematology Labs: Test 01/24/25 05:16 01/23/25 05:12 Range/Units White Blood Count 5.5 4.8-10.8 K/uL Red Blood Count 4.31 4.00-5.50 MIL/uL Hemoglobin 12.3 12.0-16.0 g/dL Hematocrit 37.3 36-48 % Mean Corpuscular Volume 86.5 79-99 fL Mean Corpuscular Hemoglobin 28.5 27.0-33.0 pg Mean Corpuscular Hemoglobin Concent 33.0 32.0-36.0 g/dL Red Cell Distribution Width 12.9 11.0-15.5 % Platelet Count 207 130-400 K/uL Mean Platelet Volume 10.5 7.5-10.5 fL Nucleated Red Blood Cells 0.0 0.0-0.19 % Immature Granulocyte % (Auto) 0.1 0-1 % Neutrophils (%) (Auto) 36.7 L 40.0-77.0 % Lymphocytes (%) (Auto) 54.0 H 21.0-51.0 % Monocytes (%) (Auto) 7.3 3.0-13.0 % Eosinophils (%) (Auto) 1.5 0.0-8.0 % Basophils (%) (Auto) 0.4 0.0-5.0 % Neutrophils # (Auto) 2.5 1.8-7.7 K/uL Lymphocytes # (Auto) 3.7 1.0-4.8 K/uL Monocytes # (Auto) 0.5 0.1-1.0 K/uL Eosinophils # (Auto) 0.10 0.00-0.70 K/uL Basophils # (Auto) 0.03 0.00-0.20 K/uL Absolute Immature Granulocyte (auto 0.01 0-1 K/uL Chemistry Labs: Test 01/24/25 05:16 01/23/25 05:12 Range/Units Sodium Level 140 136-145 mmol/L Potassium Level 3.7 3.5-5.1 mmol/L Chloride Level 108 101-111 mmol/L Carbon Dioxide Level 27 21-32 mmol/L Blood Urea Nitrogen 9 7-18 mg/dL Creatinine 0.6 0.5-1.0 mg/dL Glomerular Filtration Rate Calc 125 >90 mL/min Random Glucose 85 70-105 mg/dL Total Calcium 8.0 L 8.5-10.1 mg/dL Magnesium Level 2.00 1.80-2.40 mg/dL Total Bilirubin 1.0 0.2-1.0 mg/dL Aspartate Amino Transf (AST/SGOT) 17 10-37 U/L Alanine Aminotransferase (ALT/SGPT) 39 12-78 U/L Alkaline Phosphatase 57 50-136 U/L Total Protein 5.9 L 6.0-8.3 g/dL Albumin 3.1 L 3.5-5.0 g/dL Lipase 26 16-77 U/L Phosphorus Level 3.3 2.5-4.9 mg/dL Impression and Plan: At 29-year-old female with gallstone pancreatitis--pancreatitis has resolved clinically We will plan for laparoscopic cholecystectomy tomorrow ARLETTE OBANDO MD Jan 24, 2025 23:00
[2025-01-25] VITALS (26 sets, daily range): BP systolic 100–131; BP diastolic 49–81; PULSE 58–115; RESP 15–20; TEMP 97.3–98.6; O2SAT 98
[2025-01-25 05:39] LABS: NUCLEATED RED BLOOD CELLS 0.0 % (0.0-0.19); PLATELET COUNT (AUTO) 210.0 K/uL (130-400); RED BLOOD CELL COUNT(AUTO) 4.05 MIL/uL (4.00-5.50); RED CELL DISTRIBUTION WIDTH 12.9 % (11.0-15.5); WHITE BLOOD COUNT (AUTO) 6.1 K/uL (4.8-10.8)
[2025-01-25 05:51] LABS: CREATININE 0.5 mg/dL (0.5-1.0); GLOMERULAR FILTR. RATE CALC 130.0 mL/min (>90); GLUCOSE,RANDOM 89.0 mg/dL (70-105); SODIUM SERUM 138.0 mmol/L (136-145); UREA NITROGEN, BLOOD 5.0 mg/dL (7-18)
[2025-01-25 06:02] LABS: INR 1.14 (0.85-1.15)
[2025-01-25] MEDS: INDOCYANINE GREEN 25 MG VIAL IJ ONE ×2 (09:25→09:29)
[2025-01-25] MEDS ORDERED: MIDAZOLAM HCL 1 MG/ML 2ML VIAL ONE (09:49)
[2025-01-25] MEDS ORDERED: LIDOCAINE PF 100MG/5ML (2%) SYRINGE 5ML ONE (09:49)
[2025-01-25] MEDS: SUGAMMADEX SODIUM 200 MG/2 ML VIAL IV ONE (11:02)
--- NOTE | 2025-01-25 11:44 | OP ---
Operative Note: DATE OF PROCEDURE: 01/25/25 SURGEON: ARLETTE OBANDO MD BUSINESS OFFICE SPECIALIST: Gabriel staley ANESTHESIA: General ANESTHESIOLOGIST/PRE K SPECIAL EDUCATION TEACHER: Jonn RAE PREOPERATIVE DIAGNOSIS: Gallstone pancreatitis POSTOPERATIVE DIAGNOSIS: Gallstone pancreatitis SYNOPSIS: Cholelithiasis PROCEDURE: Laparoscopic cholecystectomy ESTIMATED BLOOD LOSS: 10 mL Indications: 29-year-old female admitted for gallstone pancreatitis. Imaging studies showed cholelithiasis. LFTs were normal. A cholecystectomy was indicated. The risks of the procedure were discussed prior to surgery which included bleeding, infection, bile duct injury, bile leak and possible open procedure and injury to surrounding viscera. The patient was taken to the operating room and placed on the operating table in supine position. Next, general anesthesia was induced and they were intubated. Their abdomen was prepped and draped in a sterile fashion. Afterwards a timeout was called. The patient's identity, procedure, preoperative antibiotics and SCDs were all confirmed. I insufflated the abdomen with a Veress needle. Next, I entered the intra-abdominal cavity through a 12 mm epigastric incision using a 12 mm Optiview port with a 0 degree 10 mm scope. I placed a 3 additional ports in the following configuration: A 5 mm supraumbilical port and two 5 mm right subcostal ports. Next, I proceeded to remove the gallbladder. I could tell that the gallbladder had gallstones. It did not look acutely inflamed. I used a harmonic scalpel to dissect the gallbladder off the liver bed fossa in a dome down fashion. I dissected down to the infundibulum. I skeletonized the cystic duct. The cystic artery was taken with the harmonic scalpel. I identified my critical my critical angle. I used PDS Endoloop to encircle the cystic duct. I transected the cystic duct with the harmonic scalpel and placed the specimen in an Endo Catch bag. The specimen was passed off. I inspected the gallbladder fossa. No active bleeding was seen. I closed the fascia of the epigastric port with a #1 Vicryl suture using the kwan-cliff device. the pneumoperitoneum was evacuated. The skin incisions were closed with 4-0 Monocryl. 0.25% percent Marcaine with epinephrine was injected into the incision sites. Dermabond was applied. The sponge needle instrument counts were accurate. The patient was extubated and taken to recovery room in stable condition. ARLETTE OBANDO MD Jan 25, 2025 11:44
[2025-01-25] MEDS ORDERED: TRAM50TA4 PO (11:50)
[2025-01-25] MEDS: SIMETHICONE 80 MG TAB.CHEW PO SCH (12:07)
--- NOTE | 2025-01-25 18:36 | PN ---
[facility] PROGRESS NOTE Date of Service: Jan 25, 2025 Time of Service: 18:28 SUBJECTIVE: Ms. Mota is a 29-year-old female that that came to the emergency department with a chief complaint of abdominal pain. Onset of pain was last night after she had a half a hamburger. The location is epigastric and the duration is constant she describes the pain more as pressure kind of pain. There were no alleviating factors. Patient says she had these episodes previously the last of which was around April which is when she decided to go to the doctor and she got diagnosed with gallstones. She did not undergo any procedure or treatment and was advised to change her diet and exercise. Patient denies any associated vomiting but said she had nausea. In the ED her lipase was in the range of 1422 and potassium at 3.4. 01/23/25: Patient is doing much better today she has no epigastric pain or nausea. Her abdomen was benign and there was no tenderness on palpitation. Her lipase is at 163 today. Her potassium has also improved to 3.7 after receiving IV potassium Her magnesium today is low at 1.70 so she is has been getting IV magnesium. Patient is scheduled for MRCP. Surgery and GI have been consulted. We will follow their recommendations. 01/24/25 Patient was seen and examined at bedside. Her lipase has come down to 26, she denies abdominal pain or nausea/ vomiting and there was no tenderness or guarding noted on palpation. As per Dr. Lane, plan is to do cholecystectomy tomorrow. Pending GI recommendations. Her electrolytes have been repleted. 01/25/25: Patient was seen and examined at bedside. Patient underwent laparoscopic cholecystectomy today. Patient regained her appetite. Waiting on patient to have a bowel movement. Patient can be discharged once she has a proper bowel movement. REVIEW OF SYSTEMS CONSTITUTIONAL: Denies fevers, chills, or night sweats. No unintentional weight loss reported. NEUROLOGICAL: Denies headache, motor weakness, sensory deficit, vertigo/spinning sensation. ENT: No hearing loss, rhinorrhea, hoarseness, or sore throat. CARDIOVASCULAR: Denies any exertional angina, dyspnea on exertion, orthopnea, paroxysmal nocturnal dyspnea. PULMONARY: Denies any shortness of breath, cough, phlegm/sputum, hemoptysis, pleuritic chest pain. GASTROINTESTINAL: constipation Denies any type of dysphagia to either liquids or solids. Denies nausea, vomiting, diarrhea, or changes in stool consistency or caliber. Denies coffee-ground emesis, hematemesis, hematochezia, or melanotic stools. ENDOCRINOLOGIC: Denies polyuria, polydipsia, polyphagia or heat/cold intolerances. DERMATOLOGIC: Denies rashes or pruritus. PHYSICAL EXAM GENERAL APPEARANCE: The patient is awake, alert, and oriented, in no acute cardiopulmonary distress. NEUROLOGICAL: Cranial nerves II-XII grossly intact. Motor is 5/5 in bilateral upper and lower extremities proximal to distal. No sensory deficits. HEENT: Face is symmetric. Pupils are equal and reactive. Extraocular movements are intact. NECK: Supple. No JVD. No thyromegaly. No submental, submandibular, pre- /postauricular, occipital or supraclavicular lymphadenopathy. CHEST: Normal chest expansion. No Telemetry. LUNGS: Absence of any rales, rhonchi or any wheezing. CARDIOVASCULAR: Regular. S1 and S2 normal. No appreciable rubs, murmurs or gallops. ABDOMEN: Soft, nontender, and nondistended. There is no rebound, voluntary guarding, or rigidity. : Deferred. No Linda. EXTREMITIES: Non-edematous and not cyanotic. No clubbing. Good capillary refill. SKIN: No skin breakdown. Vital Signs (last 8hr) Date Time Temp Pulse Resp B/P (MAP) Pulse Ox O2 Delivery O2 Flow Rate FiO2 01/25/25 17:00 78 110/71 97 01/25/25 16:00 98.6 76 18 118/58 97 Room Air 01/25/25 15:00 76 118/58 97 01/25/25 14:00 76 118/54 95 01/25/25 13:30 74 116/49 96 01/25/25 13:00 76 115/72 97 01/25/25 12:45 76 113/74 98 01/25/25 12:30 74 117/74 98 01/25/25 12:15 76 110/71 97 01/25/25 12:00 98.4 84 18 118/76 96 Room Air 01/25/25 11:55 97.5 90 15 123/74 99 Room Air 01/25/25 11:50 97.5 97 15 119/75 99 Room Air 21 01/25/25 11:45 97.5 100 16 122/74 98 Room Air 01/25/25 11:40 97.5 110 16 127/79 99 Room Air 01/25/25 11:35 97.5 109 17 129/81 99 Room Air 01/25/25 11:30 97.3 115 20 127/78 99 Room Air 01/25/25 11:25 97.3 112 19 129/74 99 Nasal Cannula 3.0 01/25/25 11:20 97.3 104 20 131/73 99 Nasal Cannula 3.0 01/25/25 11:15 97.3 108 20 127/76 99 Nonrebreathing Mask 10.0 100 01/25/25 11:10 97.3 108 17 119/78 96 Nonrebreathing Mask 10.0 100 01/25/25 11:05 97.3 110 15 124/70 96 Nonrebreathing Mask 10.0 100 LABS: Laboratory: Test 01/25/25 05:32 01/24/25 05:16 Range/Units White Blood Count 6.1 4.8-10.8 K/uL Red Blood Count 4.05 4.00-5.50 MIL/uL Hemoglobin 11.8 L 12.0-16.0 g/dL Hematocrit 34.5 L 36-48 % Mean Corpuscular Volume 85.2 79-99 fL Mean Corpuscular Hemoglobin 29.1 27.0-33.0 pg Mean Corpuscular Hemoglobin Concent 34.2 32.0-36.0 g/dL Red Cell Distribution Width 12.9 11.0-15.5 % Platelet Count 210 130-400 K/uL Mean Platelet Volume 10.9 H 7.5-10.5 fL Nucleated Red Blood Cells 0.0 0.0-0.19 % Prothrombin Time 11.9 H 9.6-11.6 SEC Prothromb Time International Ratio 1.14 0.85-1.15 Activated Partial Thromboplast Time 30.5 26.3-35.5 SEC Sodium Level 138 136-145 mmol/L Potassium Level 3.5 3.5-5.1 mmol/L Chloride Level 107 101-111 mmol/L Carbon Dioxide Level 24 21-32 mmol/L Blood Urea Nitrogen 5 L 7-18 mg/dL Creatinine 0.5 0.5-1.0 mg/dL Glomerular Filtration Rate Calc 130 >90 mL/min Random Glucose 89 70-105 mg/dL Total Calcium 8.0 L 8.5-10.1 mg/dL Magnesium Level 2.00 1.80-2.40 mg/dL Total Bilirubin 1.0 0.2-1.0 mg/dL Aspartate Amino Transf (AST/SGOT) 17 10-37 U/L Alanine Aminotransferase (ALT/SGPT) 39 12-78 U/L Alkaline Phosphatase 57 50-136 U/L Total Protein 5.9 L 6.0-8.3 g/dL Albumin 3.1 L 3.5-5.0 g/dL Lipase 26 16-77 U/L Current Medications Medications (Trade) Dose Ordered Sig/Kolton Route PRN Reason Start Time Stop Time Status Last Admin Dose Admin Acetaminophen (TYLenol 650MG SUPPOSITORY) 650 mg Q6H PRN RC MILD PAIN (1-3) 01/22/25 22:30 02/21/25 22:29 Enoxaparin Sodium (Lovenox) 40 mg DAILY SQ 01/23/25 09:00 02/22/25 08:59 01/25/25 12:10 40 MG Famotidine (Pepcid 20mg Vial) 20 mg DAILY IV 01/23/25 09:00 02/22/25 08:59 01/25/25 12:07 20 MG Hydralazine HCl (APRESOLine 20MG INJ) 10 mg Q6H PRN IV For:SBP above 160;DBP above 90 01/22/25 22:30 02/21/25 22:29 Ketorolac Tromethamine (toRADol) 30 mg Q6H PRN IM SEVERE PAIN (7-10) 01/25/25 11:30 01/30/25 11:29 Lactated Ringer's 1,000 ml @ 125 mls/hr Q8H IV 01/22/25 22:30 02/21/25 22:29 01/25/25 06:32 125 MLS/HR Lidocaine (Lidocaine Patch 4%) 1 each DAILY TP 01/26/25 09:00 02/25/25 08:59 Magnesium Sulfate 50 ml @ 0 mls/hr PROTOCOL PRN IV As needed 01/23/25 09:00 02/22/25 08:59 01/23/25 14:34 15 MLS/HR Morphine Sulfate (morPHINE 4MG SYG) 4 mg Q4H PRN IVP SEVERE PAIN (7-10) 01/22/25 22:30 01/25/25 11:42 DC Ondansetron HCl (zoFRAN 4MG INJ) 4 mg Q6H PRN IV NAUSEA/VOMITING 01/22/25 22:30 02/21/25 22:29 Potassium Chloride 100 ml @ 50 mls/hr AD PRN IV POTASSIUM PROTOCOL 01/22/25 22:30 02/21/25 22:29 01/25/25 14:58 50 MLS/HR Simethicone (Mylicon) 80 mg QID PO 01/25/25 13:00 02/24/25 12:59 01/25/25 16:17 80 MG Tramadol HCl (UltRAM) 50 mg Q4H PRN PO MODERATE PAIN (4-6) 01/25/25 11:30 01/30/25 11:29 DIAGNOSTICS / RADIOLOGY: [ ] ASSESSMENT: Acute pancreatitis due to gallstones Cholelithiasis without cholecystitis Hypokalemia PLAN: Acute pancreatitis due to gallstones * Presented with epigastric pain, improved today * Patient given lactated Ringer's solution * Patient's lipase at 26 from 163 * Could be due to the gallstones, patient is a social drinker, triglycerides at 114 * GI consulted Cholelithiasis without cholecystitis * Laparoscopic cholecystectomy performed today by Dr. Lane * Ultrasound shows cholelithiasis without cholecystitis * MRCP shows cholelithiasis, no biliary duct dilatation. No evidence of choledocholithiasis. Hypokalemia * Patient's potassium level at admission was 3.4 * Patient given IV potassium * Patient's potassium level today at 3.5 * We will continue monitoring the potassium levels ATTESTATION BY PHYSICIAN I have seen and examined the patient. I reviewed the documentation, medical decision making, and treatment plan as noted by the resident provider above. I agree with the findings and plan of care. Milind Biggs MD, ABHINAV MD Jan 25, 2025 18:36
[2025-01-26 03:57] VITALS: BP 105/61; PULSE 66; RESP 18; TEMP 98.2
[2025-01-26 05:50] LABS: NUCLEATED RED BLOOD CELLS 0.0 % (0.0-0.19); PLATELET COUNT (AUTO) 205.0 K/uL (130-400); RED BLOOD CELL COUNT(AUTO) 3.95 MIL/uL (4.00-5.50); RED CELL DISTRIBUTION WIDTH 13.0 % (11.0-15.5); WHITE BLOOD COUNT (AUTO) 8.2 K/uL (4.8-10.8)
[2025-01-26 06:00] LABS: CREATININE 0.6 mg/dL (0.5-1.0); GLOMERULAR FILTR. RATE CALC 125.0 mL/min (>90); GLUCOSE,RANDOM 95.0 mg/dL (70-105); SODIUM SERUM 137.0 mmol/L (136-145); UREA NITROGEN, BLOOD 5.0 mg/dL (7-18)
[2025-01-26 08:00] VITALS: O2SAT 100
[2025-01-26] MEDS: LIDOCAINE 4% ADH..PATCH TP SCH (08:05)
[2025-01-26 08:18] VITALS: BP 113/74; PULSE 60; RESP 19; TEMP 98
[2025-01-26 12:00] VITALS: BP 115/59; PULSE 60; RESP 19; TEMP 98
[2025-01-26] MEDS ORDERED: PoTASSium chloRIDE 20MEQ ER 20 MEQ ERTAB PO PRN (13:30)
[2025-01-26] MEDS ORDERED: PoTASSium chl 10% ELIXIR 20MEQ 20 MEQ/15 ML UDCUP PO PRN (13:30)
[2025-01-26] MEDS: LACTULOSE 20 GM/30 ML UDCUP PO PRN (13:49)
--- NOTE | 2025-01-26 15:15 | DS ---
Discharge Summary Hospital Course Summary: The patient is a 29-year-old female with past medical history of gallstones who presented to [facility] on 01/22/2025 with complaints of pressure- like epigastric abdominal pain that worsened after eating, particularly following the consumption of Greek fries and hamburger. In the emergency dep artment, CBC was unremarkable. BMP revealed hypokalemia (potassium 3.4 mmol/L) and an elevated lipase of 1422 U/L, consistent with acute pancreatitis. She was treated with IV fluid bolus, IV analgesics and admitted for further care. On admission, she was started on lactated Ringers at 125 cc/hour and received electrolyte repletion, including potassium and magnesium, per protocol. Her lipase significantly improved with the treatment to 163 U/L by the following day. An abdominal ultrasound revealed cholelithiasis without signs of acute cholecystitis. MRCP performed on 01/24/2025 confirmed cholelithiasis with no biliary ductal dilatation or evidence of choledocholithiasis. Once clinically stable, general surgery was consulted for suspected gallstone pancreatitis. Dr. Arlette Obando performed a laparoscopic cholecystectomy on 01/25/2025, which was completed successfully without complications. Postoperatively, the patient showed good recovery, with return of bowel function and tolerance of a regular diet without nausea or vomiting. She reported mild soreness at the surgical site. Pain was controlled, and she was discharged in stable condition on 01/26/2025 with a prescription for oral tramadol as needed. She was advised to follow up with her primary care provider and Dr. Obando as an outpatient [employer]p Litigation Associate(s): Dr. Arlette Obando, General Surgeon Procedure(s): [place] [address] IMAGING REPORT Signed PATIENT: LAURI ONEILL MR#: [id number] : 1995 SEX: F AGE: 29 LOCATION: [facility] ORDER 23 STATUS: REG REPORT#: [id number] SERVICE 22 REASON: Adominal Pain ORDERING PHYSICIAN: ROSANA WHITE PROCEDURE: [id number] - US ABDOMINAL RUQ\LTD EXAMINATION: Ultrasound of the abdomen (limited). CLINICAL HISTORY: Abdominal pain. COMPARISON: None provided. TECHNIQUE: Real-time grayscale ultrasound images of the abdomen. FINDINGS: LIVER: Normal in caliber; the right hepatic lobe measures 14 cm in the craniocaudal dimension. There is increased echogenicity of the hepatic parenchyma. There is no focal hepatic abnormality or intrahepatic biliary ductal dilatation. GALLBLADDER: The gallbladder is distended with multiple calculi casting posterior acoustic shadow, the largest measuring up to 1.7 cm. Normal wall thickness (2 mm). No hyperemia or pericholecystic free fluid. The common bile duct is normal in caliber, measuring 0.5 cm. PANCREAS: Normal in caliber and echotexture. No calcification or dilated pancreatic duct. The right kidney is normal in caliber; the right kidney measures 10.3 x 4.7 x 3.9 cm in its craniocaudal, AP, and transverse dimensions. There is normal renal cortical thickness and cortical echogenicity. There is no renal calculus or hydronephrosis. IMPRESSION: Cholelithiasis without evidence of acute cholecystitis. Hepatic steatosis. /Branscomb DICTATED BY: ADRIEN MCGARRY Jr., MD DATE: 01/22/252207 ELECTRONICALLY SIGNED BY: ADRIEN MCGARRY Jr., MD DATE: 01/22/252207 [place] [address] IMAGING REPORT Signed PATIENT: LAURI ONEILL MR#: [id number] : 1995 SEX: F AGE: 29 LOCATION: [facility]DH ORDER 1220 STATUS: ADM IN [facility] REPORT#: [id number] SERVICE 1212 REASON: cholethiliasis ORDERING PHYSICIAN: MARY BENOIT MD PROCEDURE: MRCP WWO - MRCP(ABDWWO)CHOLANGIOPANCREATO EXAMINATION: MRCP WITHOUT AND WITH CONTRAST. CLINICAL HISTORY: Cholelithiasis. TECHNIQUE: Multiplanar, multisequence MR imaging was performed before and after the contrast administration of intravenous contrast. COMPARISON: None. FINDINGS: The liver, spleen, bilateral adrenal glands, and kidneys appear grossly unremarkable. The visualized portions of the bowel are normal in appearance. There are no areas of increased signal intensity or abnormal post-contrast enhancement. The visualized portions of the thoracic and lumbar spine are normal. The pancreas is normal in bulk and signal intensities. No abnormally enhancing foci within. No peripancreatic fluid collections. The gallbladder appears within normal limits without gallbladder wall thickening or pericholecystic inflammatory findings. Gallbladder calculi measuring 17 mm, 14 mm and 6 mm, respectively. The common hepatic duct measures 0.4 cm. The common bile duct measures 0.34 cm is normal in caliber throughout its course without stricturing, or MR evidence for choledocholithiasis. The cystic is normal with upper CBD insertion. IMPRESSION: Cholelithiasis. No biliary duct dilatation. No evidence of choledocholithiasis. /Branscomb DICTATED BY: RAY PAYNE MD DATE: 01/24/25 1509 ELECTRONICALLY SIGNED BY: RAY PAYNE MD DATE: 01/24/25 1509 Assessment/Plan: ASSESSMENT: Gallstone pancreatitis, S/p laparoscopic cholecystectomy on 01/25/25 Cholelithiasis without cholecystitis Hypokalemia Acute Blood loss anemia Hypomagnesemia Admission Date: 01/22/2025 Discharge Date: 01/26/2025 Disposition: Home Condition at Discharge: Stable Activity: As tolerated Discharge Medications: Lidocaine patch use as needed for localized pain Tramadol 50 mg orally as needed for pain Home medications resumed Follow-Up Appointments: Primary care provider: within 12 weeks of discharge General surgeon: within 2 weeks of discharge Discharge Instructions: Wound Care: Keep surgical incisions clean and dry. You may shower after 2448 hours, but avoid soaking in bathtubs or pools. Pain Management: Use lidocaine patches and tramadol as prescribed for pain. Avoid driving or operating heavy machinery while taking tramadol. Use acetaminophen (Tylenol) for mild pain unless otherwise instructed. Diet: Start with a light, low-fat diet and gradually advance as tolerated. Avoid greasy, fried, or spicy foods for at least 12 weeks. Stay well hydrated. Activity: Resume light activities as tolerated. Avoid heavy lifting (>10 lbs) and strenuous activity for at least 1 week or as advised by your surgeon. Walking is encouraged. When to Seek Medical Attention: Fever >100.4F Increasing abdominal pain, swelling, or redness at incision sites Nausea/vomiting that prevents eating or drinking Home Medications: Active Scripts Tramadol Hcl (Tramadol HCl) 50 Mg Tablet, 50 MG PO Q4H PRN for MODERATE PAIN (4-6), #20 TAB take as needed for postoperative pain Prov:ARLETTE OBANDO MD 01/25/25 New Medications: Tramadol Hcl (Tramadol HCl) 50 Mg Tablet 50 MG PO Q4H PRN for MODERATE PAIN (4-6), #20 TAB take as needed for postoperative pain Time spent arranging discharge: 31-60 minutes ATTESTATION BY PHYSICIAN I have seen and examined the patient. I reviewed the documentation, medical decision making, and treatment plan as noted by the resident provider above. I agree with the findings and plan of care. Milind Biggs MD, MANALI MD Jan 26, 2025 15:15
--- NOTE | 2025-01-26 16:05 | NUR ---
DISCHARGE EDUCATION GIVEN TO PATIENT REGARDING FOLLOW UP APPOINTMENT INFORMATION. PATIENT VERBALIZED UNDERSTANDING. IV CATHETER REMOVED AND INTACT. Addendum: 01/26/25 at 1614 by MARK GARCIA LVN LVN PATIENT TRANSPORTED DOWN VIA WHEELCHAIR TO PRIVATE CAR. NO FURTHER COMMENTS.
[2025-01-26 16:13] VITALS: BP 140/60; PULSE 63; RESP 19; TEMP 98
== END 2025-01-26 16:15 | disposition home or self-care (01) | DRG 418 ==
LOC: EDH 19:06 → EDHIP 19:07 → 4DH 23:29
PROVIDERS: ADMIT Internal Medicine; ATTEND Internal Medicine
PROC: 0FT44ZZ Resection of Gallbladder, Percutaneous Endoscopic Approach (ICD-10-PCS; principal; 2025-01-25 09:00)
DX: K85.10 Biliary acute pancreatitis without necrosis or infection (principal); D62 Acute posthemorrhagic anemia; E87.6 Hypokalemia; K80.20 Calculus of gallbladder without cholecystitis without obstruction; E83.42 Hypomagnesemia; K76.0 Fatty (change of) liver, not elsewhere classified; Z51.5 Encounter for palliative care
CPT/HCPCS: 36415; 74183; 76705; 80048; 80053; 80076; 81001; 81025; 83690; 83735; 84100; 84478; 85025; 85027; 85610; 85730; 99285; G0378; J0690; J1100; J1650; J1885; J2003; J2250; J2270; J2405; J2704; J3010; J3475; J3480; J3490; J7030; A4215; A4216; A4222; A4223; A4649; A4930; A9575; J0665